=== PATIENT | male | born 1990 | race Caucasian/White ===

== ENCOUNTER 2016-10-31 21:16 | Emergency (ER) | payer SELFPAY ==
[~2016-10-31] VITALS: Ht 188 cm; Wt 68.0 kg
[~2016-10-31 21:16] MED LIST: HUMALOG MI100 UNIT/1 SUBCUT; LANTUS100 UNIT/1 SUBCUT
[2016-10-31] MEDS ORDERED: NOVOLOG100 UNIT/2 SUBCUT (23:19)
== END 2016-10-31 22:16 | disposition short-term general hospital (02) ==
LOC: ER 21:16
PROC: 08QPXZZ Repair Left Upper Eyelid, External Approach (ICD-10-PCS; principal; 2016-10-31)
DX: S01.112A Laceration without foreign body of left eyelid and periocular area, initial encounter (principal); E11.9 Type 2 diabetes mellitus without complications; Z79.4 Long term (current) use of insulin; W55.03XA Scratched by cat, initial encounter